=== PATIENT | female | born 1955 | race Caucasian/White ===

== ENCOUNTER → 2017-03-23 | Outpatient (CLI) | payer MEDICAID ==
[2014-08-20 10:39] VITALS: BP 116/60
[2017-03-23 11:33] LABS: BASOPHILS % (AUTO) 0.3 % (0.2-1.0); EOSINOPHILS # (AUTO) 0.3 x10^3/uL (0.0-0.2); EOSINOPHILS % (AUTO) 4.9 % (0.9-2.9); HEMATOCRIT 39.2 % (36.0-47.0); LYMPHOCYTES # (AUTO) 1.4 X10^3/uL (1.3-2.9); LYMPHOCYTES % (AUTO) 24.9 % (21.0-51.0); MEAN CORPUSCULAR HEMOGLOBIN 30.5 pg (27.0-34.0); MEAN CORPUSCULAR HGB CONC 33.1 g/dL (33.0-35.0); MEAN CORPUSCULAR VOLUME 92.2 fL (80.0-100.0); MEAN PLATELET VOLUME 8.9 fL (7.4-11.0); MONOCYTES # (AUTO) 0.3 x10^3/uL (0.3-0.8); MONOCYTES % (AUTO) 5.8 % (0.0-13.0); NEUTROPHILS # (AUTO) 3.5 x10^3/uL (2.2-4.8); NEUTROPHILS % (AUTO) 64.1 % (42.0-75.0); PLATELET COUNT 148 X10^3/uL (150.0-450.0); RED BLOOD COUNT 4.25 X10^6/uL (3.5-5.4); RED CELL DISTRIBUTION WIDTH 14.7 % (11.6-16.5); WHITE BLOOD COUNT 5.4 X10^3/uL (3.6-10.0)
[2017-03-23 11:39] LABS: ALANINE AMINOTRANSFERASE 27 Units/L (12-78); ALBUMIN 3.3 g/dL (3.4-5.0); ALKALINE PHOSPHATASE 68 Units/L (46-116); ASPARTATE AMINO TRANSFERASE 21 Units/L (15-37); BLOOD UREA NITROGEN 13 mg/dL (7-18); CALCIUM 9.1 mg/dL (8.5-10.1); CARBON DIOXIDE 31.6 mmol/L (21-32); CHLORIDE 108 mmol/L (98-107); CHOL/HDL RATIO 1.7 (0.0-5.0); CHOLESTEROL 133 mg/dL (0-200); COR CA(FOR HYPOALB) 9.7 mg/dL (8.5-10.1); COR NA(FOR HYPERGLY) 147 mmol/L (136-145); CREATININE 1.13 mg/dL (0.55-1.02); GLUCOSE 125 mg/dL (65-99); HDL CHOLESTEROL 77 mg/dL (40-60); SODIUM 146 mmol/L (136-145); T4 (THYROXINE) 8.5 ug/dL (4.7-13.3); TOTAL PROTEIN 6.9 g/dL (6.4-8.2); TRIGLYCERIDES 71 mg/dL (0-150); TSH (3RD GENERATION) 2.099 uIU/mL (0.358-3.74); URIC ACID 3.9 mg/dL (2.6-6.0); eGFR BLACK RACES > 60 (>60); eGFR NON BLACK RACES 52 (>60)
[2017-03-23 12:02] LABS: ERYTHROCYTE SEDIMENTATION RATE 13 MM/HOUR (0-20)
[2017-03-23 12:07] LABS: TRANSFERRIN 194 mg/dL (202-364)
--- NOTE | 2017-03-23 12:47 | RAD ---
HISTORY: Right shoulder pain Study: 3 views of the right shoulder. Comparison: None Findings: No acute fractures or dislocations. The glenohumeral articulation is normal in its appearance. No g ross soft tissue abnormalities. The acromioclavicular joint is normal in appearance. IMPRESSION: 1. No acute abnormality of the right shoulder. Reported By:
[2017-03-28 05:35] LABS: METHYLMALONIC ACID 0.19 umol/L (0.00-0.40)
== END ==
LOC: LAB 10:14
PROVIDERS: ATTEND Nurse Practitioner Family
DX: E03.8 Other specified hypothyroidism (principal); M10.9 Gout, unspecified; E78.4 Other hyperlipidemia; D64.89 Other specified anemias; Z91.89 Other specified personal risk factors, not elsewhere classified; M25.511 Pain in right shoulder
CPT/HCPCS: 36415; 73030; 80053; 80061; 82306; 82607; 82728; 82746; 83918; 84436; 84443; 84466; 84480; 84550; 85025; 85652; 86140

== ENCOUNTER → 2017-05-24 | Outpatient (CLI) | payer MEDICAID ==
[2014-08-20 10:39] VITALS: BP 116/60
--- NOTE | 2017-05-24 15:44 | MRI ---
Right shoulder MRI without contrast Indication: Right shoulder pain related to pulling injury Technique: Multi sequence, multiplanar MR images of the right shoulder were obtained without contras t. Comparison: Shoulder radiograph March 25, 2017 Findings: Apart from subcortical cysts along the anterior humeral head, marrow signal appears normal . No acute fracture, malalignment or suspicious osseous lesion is identified. There is a complete tear of the supraspinatus tendon at the footplate, which is centrally retraction to the level of the AC joint. There is marked infraspinatus tendinosis, which demonstrates an inter mediate grade, mixed articular and bursal sided tear of its anterior-mid fibers at the footplate wit h a delaminating component extending to the myotendinous junction. There are also partial thickness tears of the cranial subscapularis tendon near its insertion. The teres minor appears intact. There is mild fatty atrophy of the supraspinatus and infraspinatus muscles. There is moderate DJD of the AC joint with associated capsular hypertrophy, marginal osteophyte form ation and small effusion. There is also mild DJD of the glenohumeral joint with small marginal osteo phyte formation along the inferomedial humeral head. The humeral head is high-riding within the rhona oid with narrowing of the acromiohumeral interval and large fluid within the subdeltoid/subacromial bursa, secondary to full-thickness cuff tears. There is also a small-moderate glenohumeral joint eff usion. The intraarticular long head biceps tendon is not visualized. There is a longitudinal tear of the ex tra-articular biceps tendon, which remains appropriately positioned within the bicipital groove. The re is moderate degenerative fraying of the labrum without discrete focal defect identified. Impression: 1. Complete tear of the supraspinatus tendon at the footplate with central retraction to the level o f the AC joint and mild associated atrophy. 2. Mixed, intermediate grade tears of the anterior-mid infraspinatus tendon at the footplate with de laminating component extending to the myotendinous junction. There is mild associated atrophy. 3. Partial thickness tears of the cranial subscapularis tendon. 4. Moderate AC and mild glenohumeral joint DJD with moderate sized, likely reactive joint effusion. 5. Tears of the long head biceps tendon, as detailed above Reported By:
== END | disposition home or self-care (01) ==
LOC: RAD 13:01
PROVIDERS: ATTEND Nurse Practitioner Family
DX: M25.512 Pain in left shoulder (principal); S46.812A Strain of other muscles, fascia and tendons at shoulder and upper arm level, left arm, initial encounter; X58.XXXA Exposure to other specified factors, initial encounter
CPT/HCPCS: 73221

== ENCOUNTER → 2017-07-05 | Outpatient (CLI) | payer MEDICAID ==
[2014-08-20 10:39] VITALS: BP 116/60
--- NOTE | 2017-07-05 14:42 | RAD ---
HISTORY: Personal history of neoplasm. History of breast cancer. Study: Two-view chest. Comparison: July 20, 2016. Findings: The trachea is midline. The cardiac silhouette is within normal limits. The lungs are clear without focal infiltrate or effusion. No pulmonary nodules or mass lesions are identified. Laparoscopically placed gastric band is incidentally noted. Cholecystectomy clips project over the right upper quadran t of the abdomen. The bony thorax is unremarkable. IMPRESSION: No acute cardiopulmonary disease or concerning change compared with July 20, 2016. Reported By:
--- NOTE | 2017-07-06 11:00 | MG ---
HISTORY: SCREENING Comparison: June 13, 2016 FINDINGS: Bilateral CC and MLO projections of the right and left breast were obtained. Scattered fibroglandula r tissue is seen to be present. Postoperative changes consistent with prior lumpectomy is observed wi thout underlying mass or clustered microcalcifications. Otherwise, no significant architectural disto rtion, mass or clustered microcalcifications can be observed to suggest malignancy. No skin thickeni ng or nipple retraction is appreciated. No pathological lymphadenopathy can be identified. Benign-a ppearing calcifications scattered throughout the right and left breasts are observed. IMPRESSION: NO RADIOGRAPHIC EVIDENCE OF MALIGNANCY. ACR CATEGORY: 2 - benign findings. FOLLOW-UP EXAM 1 YEAR. Diagnostic CAD was utilized and reviewed. * 0 (ZERO) - ASSESSMENT INCOMPLETE; ADDITIONAL IMAGING IS NEEDED. * 1/1 (ONE) - NEGATIVE. * 2/II (TWO) - BENIGN FINDINGS. * 3/III (THREE) - PROBABLY BENIGN FINDING; SHORT INTERVAL FOLLOW-UP SUGGESTED. * 4/IV (FOUR) - SUSPICIOUS ABNORMALITY; BIOPSY SHOULD BE CONSIDERED. * 5/V - HIGHLY SUSPICIOUS OF MALIGNANCY; BIOPSY SHOULD BE PERFORMED. A NEGATIVE X-RAY REPORT SHOULD NOT DELAY BIOPSY IF A DOMINANT OR CLINICALLY SUSPICIOUS MASS IS PRESENT; 4 TO 8 PERCENT OF CANCERS ARE NOT IDENTIFIED BY X-RAY. A NEGA TIVE REPORT MAY REINFORCE THE CLINICAL IMPRESSION. ADENOSIS AND DENSE BREASTS MAY OBSCURE AN UNDERLY ING NEOPLASM. Reported By:
== END ==
LOC: RAD 10:11
PROVIDERS: ATTEND Surgery
DX: Z12.31 Encounter for screening mammogram for malignant neoplasm of breast (principal); Z85.3 Personal history of malignant neoplasm of breast
CPT/HCPCS: 71020; 77067

== ENCOUNTER 2017-07-07 09:20 | Emergency (ER) | payer MEDICAID ==
[2017-07-07 09:35] VITALS: BP 133/92; BMI 38.7
--- NOTE | 2017-07-07 10:18 | DR.GENAD ---
HPI - PCP Primary Care Physician: MARLENE MARES - Complaint/Symptoms Chief Complaint Doctors Comments: Patient admits to having cramps for the past three months Chief Complaint:: CRAMPING, ALL OVER MY BODY, Self Treatment fo Chief Complaint: CHANGED AND DELETED SOME MEDS LAST NIGHT - Source History Provided: Patient - Mode of Arrival Mode of Arrival: Ambulatory - Timing Onset of Chief Complaint: 06/20/17 PMH - PMH Past Medical History: Yes Past Medical History: Anxiety, GERD, Hypothyroidism Past Medical History Comment: BREAST CA Past Surgical History: Yes Surgical History: Appendectomy, Cholecystectomy, Hysterectomy - Family History History of Family Medical Conditions: Yes Family Medical History: Diabetes Mellitus, Cancer, Hypertension - Social History Alcohol Use: None Do you use any recreational Drugs:: No Lives With: Family Lives Where: Home - infectious screening In the last 2 months have you had wt loss of >10#?: NO Have you had fever, night sweats or hemotysis?: No Have you traveled outside the country in the last 6 months?: No Isolation: Standard ROS - Review of Systems Eyes: No Symptoms Reported ENTM: No Symptoms Reported Respiratoy: No Symptoms Reported Cardiovascular: No Symptoms Reported Gastrointestinal/Abdominal: No Symptoms Reported Genitourinary: No Symptoms Reported Neurological: No Symptoms Reported Musculoskeletal: No Symptoms Reported Integumentary: No Symptoms Reported Hematologic/Lymphatic: No Symptoms Reported Endocrine: No Symptoms Reported Psychiatric: No Symptoms Reported All Other Systems: Reviewed and Negative PE - Vital Signs Vitals: Temperature 98.1 F Pulse Rate 82 Respiratory Rate 18 Blood Pressure [Left Arm] 112/68 Blood Pressure 133/92 O2 Sat by Pulse Oximetry 95 - General Limitations: No Limitations General Appearance: Alert, In No Apparent Distress - Head Head Exam: Normal Inspection, Atraumatic - Eyes Eye exam: Normal Appearance, PERRL, EOMI - ENT ENT Exam: Normal Exam External Ear Exam: Normal External Inspection TM/Canal Exam: Bilateral Normal Nose Exam: Normal Nose Exam Mouth Exam: Normal Inspection Throat Exam: Normal Inspection - Neck Neck Exam: Normal Inspection - Chest Chest Inspection: Normal Inspection - Respiratory Respiratory Exam: Normal Lung Sounds Bilat Respiratory Exam: Bilateral Clear to Auscultation - Cardiovascular Cardiovascular Exam: Regular Rate, Normal Rhythm - Abdominal Exam Abdominal Exam: Normal Inspection Abdominal Tenderness: negative: RUQ, RLQ, LUQ, LLQ, Epigastrium, Suprapubic, Diffuse, Mild, Moderate, Severe, Other - Extremities Extremities Exam: Normal Inspection, Full ROM - Back Back Exam: Normal Inspection - Neurologic Neurological Exam: Alert, CN II-XII Intact - Psychiatric Psychiatric Exam: Normal Affect - Skin Skin Exam: Warm, Dry, Intact - Diagnosis Discharge Problem: Hyperthyroidism - Discharge Plan Condition: Stable - Follow ups/Referrals Follow ups/Referrals: RODRIGUEZ MARES [Primary Care Provider] - 3 days - Instructions
[2017-07-07] MEDS ORDERED: NUBAIN INJ 10 IM ONE (10:31)
[2017-07-07] MEDS ORDERED: NUBAIN INJ 10 ONE (10:32)
== END 2017-07-07 11:00 | disposition home or self-care (01) ==
LOC: ER 09:38
DX: E05.90 Thyrotoxicosis, unspecified without thyrotoxic crisis or storm (principal)
CPT/HCPCS: 96372; 99282; J2300

== ENCOUNTER → 2017-09-29 | Outpatient (CLI) | payer MEDICAID ==
[2017-09-29 10:25] LABS: CREATININE 1.24 mg/dL (0.55-1.02)
--- NOTE | 2017-09-29 16:20 | CT ---
HISTORY: Left upper quadrant pain, nausea and vomiting Study: CT abdomen and pelvis with contrast Comparison: 09/11/2014 Technique: Multiple axial images of the abdomen and pelvis were obtained with IV contrast. Oral contrast was ad ministered. Dose reduction techniques including Automated Exposure Control (AEC) and adjustment of mA and kV were utilized. Findings: The proximal gastric pouch has enlarged since prior exam, in keeping with an enlarging hiatal hernia. There is contrast seen pooling in the proximal pouch. There is a lap band in place with appropriate orientation. The liver, spleen, pancreas, kidneys, and adrenal glands are unremarkable. The gallblad lencho is removed. No renal calculi or obstructive uropathy identified. No free intraperitoneal air. No evidence of intestinal obstruction or inflammation. There are a few c olonic diverticula present without evidence of acute inflammation. The appendix is removed. There are degenerative changes of the lumbosacral spine. The vascular structures are within normal li mits for age. No pathologically enlarged lymph nodes are identified. The uterus is removed. The urina ry bladder is collapsed, limiting evaluation. IMPRESSION: 1. Enlarging hiatal hernia with greater protrusion of the proximal gastric pouch through the band. Th is can be a sign of dysfunction, correlate clinically. Lap band orientation appears appropriate. 2. Some oral contrast remains within the proximal gastric pouch but the majority of contrast flows no rmally through the band without evidence of high-grade obstruction. 3. Additional postsurgical changes as described. Reported By:
== END ==
LOC: RAD 09:26
PROVIDERS: ATTEND Nurse Practitioner Family
DX: R19.04 Left lower quadrant abdominal swelling, mass and lump (principal); K44.9 Diaphragmatic hernia without obstruction or gangrene
CPT/HCPCS: 36415; 74177; 82565; 84520; A4222

== ENCOUNTER 2017-10-19 09:41 | Day surgery (SDC) | payer MEDICAID ==
[2017-10-19] MEDS ORDERED: D5 LR 1000 ML 1,000 ML IV ONE (09:53)
[2017-10-19] MEDS ORDERED: VERSED ONE (10:56)
[2017-10-19] MEDS ORDERED: DIPRIVAN VIAL 20 ML ONE (11:58)
[2017-10-19 12:37] VITALS: BP 136/86
== END 2017-10-19 12:35 | disposition home or self-care (01) ==
LOC: SURG1 09:41
PROVIDERS: ATTEND Internal Medicine Gastroenterology
PROC: 0DJ08ZZ Inspection of Upper Intestinal Tract, Via Natural or Artificial Opening Endoscopic (ICD-10-PCS; principal; 2017-10-19 14:30)
PROC: 0DB88ZX Excision of Small Intestine, Via Natural or Artificial Opening Endoscopic, Diagnostic (ICD-10-PCS; principal; 2017-10-19 14:30)
PROC: 0DB68ZX Excision of Stomach, Via Natural or Artificial Opening Endoscopic, Diagnostic (ICD-10-PCS; principal; 2017-10-19 14:30)
DX: R11.0 Nausea (principal); R10.13 Epigastric pain; K21.9 Gastro-esophageal reflux disease without esophagitis; Z98.84 Bariatric surgery status; K20.8 Other esophagitis; K29.60 Other gastritis without bleeding; Z98.890 Other specified postprocedural states
CPT/HCPCS: A4217; J2250; J3490; J7120

== ENCOUNTER 2017-10-26 08:20 | Day surgery (SDC) | payer MEDICAID ==
[2017-10-26] MEDS ORDERED: D5 LR 1000 ML 1,000 ML IV ONE (08:28)
[2017-10-26] MEDS ORDERED: VERSED ONE (09:55)
[2017-10-26] MEDS ORDERED: DIPRIVAN VIAL 20 ML ONE ×2 (10:06→10:23)
[2017-10-26 10:40] VITALS: BP 112/67
== END 2017-10-26 10:40 | disposition home or self-care (01) ==
LOC: SURG1 08:20
PROVIDERS: ATTEND Internal Medicine Gastroenterology
PROC: 0DBP8ZX Excision of Rectum, Via Natural or Artificial Opening Endoscopic, Diagnostic (ICD-10-PCS; principal; 2017-10-26 10:00)
PROC: 0DJD8ZZ Inspection of Lower Intestinal Tract, Via Natural or Artificial Opening Endoscopic (ICD-10-PCS; principal; 2017-10-26 10:00)
DX: Z12.11 Encounter for screening for malignant neoplasm of colon (principal); K63.5 Polyp of colon; K64.0 First degree hemorrhoids; K57.30 Diverticulosis of large intestine without perforation or abscess without bleeding; Z86.010 Personal history of colon polyps
CPT/HCPCS: A4217; J2250; J3490; J7120

== ENCOUNTER 2017-11-20 17:20 | Emergency (ER) | payer MEDICAID ==
[2017-11-20 17:31] VITALS: BMI 37.8
--- NOTE | 2017-11-20 17:39 | DR.GENAD ---
HPI - PCP Primary Care Physician: GRACIA MARES - HPI Comment HPI Comment: Pt states she fell onto her lefgt hip about 10 days ago. Went to PCPs office today, was noted to be somnolent with dropping sats when she fell asleep. Sent here with concern for PE. Pt AAOx3, alert and conversant on arrival. - Complaint/Symptoms Chief Complaint:: PT TO ER PER [facility] [employer] REQUEST AND SHE STATES PT FELL A WEEK AGO AND THAT SHE IS HAVING KNEE PAIN AND SOME SOB, AND HER SATS WERE DROPPING IN THE 80'S AND THAT SHE WAS VERY SEDATED AND THAT SHE THINKS SHE MAY HAVE A PE, OR DVT. - Source History Provided: Patient, Other - Mode of Arrival Mode of Arrival: EMS - Timing Onset of Chief Complaint: 11/20/17 <DURAN MUNOZ - Last Filed: 11/20/17 17:49> PMH - PMH Past Medical History: Yes Past Medical History: Anxiety, GERD, Hypothyroidism Past Medical History Comment: no hx cardiac dz per pt Past Surgical History: Yes Surgical History: Appendectomy, Cholecystectomy, Hysterectomy Past Surgical History Comment: both knees rep[laced, rt in 1996, left in 2010. - Family History History of Family Medical Conditions: Yes Family Medical History: Diabetes Mellitus, Cancer, Hypertension - Social History Does patient currently use any type of tobacco product: No Have you used tobacco products in the last 12 months: No Type of Tobacco Use: None Does any household member use tobacco: No Alcohol Use: None Do you use any recreational Drugs:: No Lives With: Family Lives Where: Home - infectious screening In the last 2 months have you had wt loss of >10#?: NO Have you had fever, night sweats or hemotysis?: No Have you traveled outside the country in the last 6 months?: No Isolation: Standard <DURAN MUNOZ - Last Filed: 11/20/17 17:49> ROS - Review of Systems Constitutional: No Symptoms Reported Eyes: No Symptoms Reported ENTM: No Symptoms Reported Respiratoy: No Symptoms Reported Cardiovascular: No Symptoms Reported Gastrointestinal/Abdominal: No Symptoms Reported Genitourinary: No Symptoms Reported Neurological: No Symptoms Reported Musculoskeletal: Joint Pain, Hip (left hip pain, hurts chronically but worse since fall 10 days ago, pt states left knee always hurts) <DURAN MUNOZ - Last Filed: 11/20/17 17:49> PE - General Limitations: No Limitations. negative: Altered Mental Status General Appearance: Alert, In No Apparent Distress, Obese. negative: Appears Intoxicated, Lethargic - Head Head Exam: Normal Inspection, Normocephalic - Eyes Eye exam: Normal Appearance, PERRL, Conjunctival Injection - ENT ENT Exam: Normal Exam Nose Exam: Normal Nose Exam Mouth Exam: Normal Inspection Throat Exam: Normal Inspection. negative: Tonsillar Erythema, Tonsillomegaly - Neck Neck Exam: Normal Inspection, Full ROM, Trachea Midline. negative: Tenderness, Meningismus, Lymphadenopathy - Chest Chest Inspection: Normal Inspection, Symmetric Chest Wall Rise - Respiratory Respiratory Exam: Normal Lung Sounds Bilat. negative: Accessory Muscle Use, Chest Wall Tenderness, Prolonged Expiratory Phase, Respiratory Distress, Stridor Respiratory Exam: Bilateral Clear to Auscultation - Cardiovascular Cardiovascular Exam: Regular Rate, Normal Rhythm. negative: Systolic Murmur, Diastolic Murmur - Abdominal Exam Abdominal Exam: Normal Inspection, Normal Bowel Sounds, Soft - Extremities Extremities Exam: Normal Inspection, Full ROM, Normal Capillary Refill, Other ( Kermit's neg bilat). negative: Tenderness, Edema, Joint Swelling, Calf Tenderness - Neurologic Neurological Exam: Alert, Oriented X3, Reflexes Normal - Psychiatric Psychiatric Exam: Normal Affect, Normal Mood - Skin Skin Exam: Warm, Dry, Intact <DURAN MUNOZ - Last Filed: 11/20/17 17:49> - Vital Signs Vitals: Temperature 96.9 F Pulse Rate [Left Brachial] 98 Pulse Rate 75 Respiratory Rate 22 Blood Pressure [Left Arm] 104/71 Blood Pressure 132/86 O2 Sat by Pulse Oximetry 95 Course - Treatment Treatment: Alert in no respiratory distress, 95% on RA - Reevaluation 1st: Improved <RADHA CALHOUN - Last Filed: 11/20/17 23:44> ROR - Labs Reviewed Laboratory Results Reviewed?: Yes (D Dimer Elevated, Potassium elevated) Result Diagrams: 11/20/17 17:50 11/20/17 23:00 - XRAY XRAY Interpreted by: Radiologist (Venous Doppler negative for DVT), Self (Chest : cardiomegaly without definite pulmonary disease. i,e pneumonia) <RADHA CALHOUN - Last Filed: 11/20/17 23:44> - Labs Reviewed Laboratory: WBC 8.8 X10^3/uL (3.6-10.0) 11/20/17 17:50 RBC 4.03 X10^6/uL (3.5-5.4) 11/20/17 17:50 Hgb 12.7 g/dL (12.0-16.0) 11/20/17 17:50 Hct 37.8 % (36.0-47.0) 11/20/17 17:50 MCV 93.8 fL (80.0-100.0) 11/20/17 17:50 MCH 31.6 pg (27.0-34.0) 11/20/17 17:50 MCHC 33.7 g/dL (33.0-35.0) 11/20/17 17:50 RDW 13.9 % (11.6-16.5) 11/20/17 17:50 Plt Count 184 X10^3/uL (150.0-450.0) 11/20/17 17:50 MPV 7.8 fL (7.4-11.0) 11/20/17 17:50 Neut % 71.9 % (42.0-75.0) 11/20/17 17:50 Lymph % 18.0 % (21.0-51.0) L 11/20/17 17:50 [place] % 6.7 % (0.0-13.0) 11/20/17 17:50 Eos % 2.8 % (0.9-2.9) 11/20/17 17:50 Baso % 0.6 % (0.2-1.0) 11/20/17 17:50 Neut # 6.4 x10^3/uL (2.2-4.8) H 11/20/17 17:50 Lymph # 1.6 X10^3/uL (1.3-2.9) 11/20/17 17:50 [place] # 0.6 x10^3/uL (0.3-0.8) 11/20/17 17:50 Eos # 0.2 x10^3/uL (0.0-0.2) 11/20/17 17:50 Baso # 0.1 X10^3/uL (0.0-0.1) 11/20/17 17:50 Absolute Nucleated RBC 0.1 /100WBC 11/20/17 17:50 D-Dimer 958 ng/mL (0-400) H* 11/20/17 17:50 Sodium 138 mmol/L (136-145) 11/20/17 23:00 Corrected Sodium 139 mmol/L (136-145) 11/20/17 23:00 Potassium 4.4 mmol/L (3.5-5.1) 11/20/17 23:00 Chloride 104 mmol/L (98-107) 11/20/17 23:00 Carbon Dioxide 28.2 mmol/L (21-32) 11/20/17 23:00 BUN 15 mg/dL (7-18) 11/20/17 23:00 Creatinine 1.33 mg/dL (0.55-1.02) H 11/20/17 23:00 Est GFR (MDRD) Af Amer 52 (>60) L 11/20/17 23:00 Est GFR (MDRD) Non-Af 43 (>60) L 11/20/17 23:00 Glucose 122 mg/dL (65-99) H 11/20/17 23:00 Calcium 8.4 mg/dL (8.5-10.1) L 11/20/17 23:00 Corrected Calcium 9.8 mg/dL (8.5-10.1) 11/20/17 17:50 Total Bilirubin 0.20 mg/dL (0.2-1.0) 11/20/17 17:50 AST 13 Units/L (15-37) L 11/20/17 17:50 ALT 16 Units/L (12-78) 11/20/17 17:50 Alkaline Phosphatase 84 Units/L (46-116) 11/20/17 17:50 Creatine Kinase 32 Units/L (26-192) 11/20/17 17:50 CK-MB (CK-2) < 1.0 ng/mL (0-4.0) 11/20/17 17:50 CK/CKMB % Calc 3.1 % (<4) 11/20/17 17:50 Troponin I < 0.02 ng/mL (0-1.5) 11/20/17 17:50 B-Natriuretic Peptide 11.7 pg/mL (0-79) 11/20/17 17:50 Total Protein 6.9 g/dL (6.4-8.2) 11/20/17 17:50 Albumin 3.2 g/dL (3.4-5.0) L 11/20/17 17:50 Globulin 3.7 g/dL (2.5-4.5) 11/20/17 17:50 Albumin/Globulin Ratio 0.9 Ratio (1.1-2.1) L 11/20/17 17:50 Specimen Type Clean catch urine 11/20/17 20:09 Urine Color Yellow (YELLOW) 11/20/17 20:09 Urine Appearance Hazy (CLEAR) 11/20/17 20:09 Urine pH 5.0 (5.0 - 8.0) 11/20/17 20:09 Ur Specific [place] 1.025 (1.000-1.030) 11/20/17 20:09 Urine Protein 2+ (NEGATIVE) 11/20/17 20:09 Urine Glucose (UA) Negative (NEGATIVE) 11/20/17 20:09 Urine Ketones Negative (NEGATIVE) 11/20/17 20:09 Urine Occult Blood 2+ (NEGATIVE) 11/20/17 20:09 Urine Nitrite Negative (NEGATIVE) 11/20/17 20:09 Urine Bilirubin Negative (NEGATIVE) 11/20/17 20:09 Urine Urobilinogen Normal (NORMAL) 11/20/17 20:09 Ur Leukocyte Esterase Negative (NEGATIVE) 11/20/17 20:09 Urine RBC 0-5 /HPF (NEGATIVE) 11/20/17 20:09 Urine WBC 0-2 /HPF (NEGATIVE) 11/20/17 20:09 Ur Squamous Epith Cells Negative /HPF (NEGATIVE) 11/20/17 20:09 Urine Bacteria Trace /HPF (NEGATIVE) 11/20/17 20:09 Ur Culture Indicated? No/not indicated 11/20/17 20:09 <DURAN MUNOZ - Last Filed: 11/20/17 17:49> <RADHA CALHOUN - Last Filed: 11/20/17 23:44> - Diagnosis Discharge Problem: Negative DVT, Hyperkalemia Knee pain, left Qualifiers: Chronicity: unspecified Qualified Code(s): M25.562 - Pain in left knee - Discharge Plan Condition: Stable - Follow ups/Referrals Follow ups/Referrals: Gracia Mares [Primary Care Provider] - 3 days - Instructions
[2017-11-20 17:58] LABS: BASOPHILS # (AUTO) 0.1 X10^3/uL (0.0-0.1); BASOPHILS % (AUTO) 0.6 % (0.2-1.0); EOSINOPHILS # (AUTO) 0.2 x10^3/uL (0.0-0.2); EOSINOPHILS % (AUTO) 2.8 % (0.9-2.9); HEMATOCRIT 37.8 % (36.0-47.0); HEMOGLOBIN 12.7 g/dL (12.0-16.0); LYMPHOCYTES # (AUTO) 1.6 X10^3/uL (1.3-2.9); MEAN CORPUSCULAR HEMOGLOBIN 31.6 pg (27.0-34.0); MEAN CORPUSCULAR HGB CONC 33.7 g/dL (33.0-35.0); MEAN CORPUSCULAR VOLUME 93.8 fL (80.0-100.0); MEAN PLATELET VOLUME 7.8 fL (7.4-11.0); MONOCYTES # (AUTO) 0.6 x10^3/uL (0.3-0.8); MONOCYTES % (AUTO) 6.7 % (0.0-13.0); NEUTROPHILS # (AUTO) 6.4 x10^3/uL (2.2-4.8); NEUTROPHILS % (AUTO) 71.9 % (42.0-75.0); PLATELET COUNT 184 X10^3/uL (150.0-450.0); RED BLOOD COUNT 4.03 X10^6/uL (3.5-5.4); RED CELL DISTRIBUTION WIDTH 13.9 % (11.6-16.5); WHITE BLOOD COUNT 8.8 X10^3/uL (3.6-10.0)
[2017-11-20 18:15] LABS: BLOOD UREA NITROGEN 17 mg/dL (7-18); CALCIUM 9.2 mg/dL (8.5-10.1); CARBON DIOXIDE 33.4 mmol/L (21-32); CHLORIDE 103 mmol/L (98-107); COR NA(FOR HYPERGLY) 140 mmol/L (136-145); CREATININE 1.66 mg/dL (0.55-1.02); SODIUM 139 mmol/L (136-145); TROPONIN I < 0.02 ng/mL (0-1.5); eGFR BLACK RACES 40 (>60); eGFR NON BLACK RACES 33 (>60)
[2017-11-20 18:19] LABS: ALANINE AMINOTRANSFERASE 16 Units/L (12-78); ALBUMIN 3.2 g/dL (3.4-5.0); ALKALINE PHOSPHATASE 84 Units/L (46-116); ASPARTATE AMINO TRANSFERASE 13 Units/L (15-37); CKMB % 3.1 % (<4); COR CA(FOR HYPOALB) 9.8 mg/dL (8.5-10.1); CREATINE KINASE 32 Units/L (26-192); CREATINE KINASE MB < 1.0 ng/mL (0-4.0); TOTAL PROTEIN 6.9 g/dL (6.4-8.2)
[2017-11-20 18:27] LABS: B-TYPE NATRIURETIC PEPTIDE 11.7 pg/mL (0-79)
[2017-11-20] MEDS ORDERED: NS 1000 ML 1,000 ML ONE ×2 (18:52→19:31)
[2017-11-20] MEDS ORDERED: NS 1000 ML 1,000 ML IV ONE (18:52)
[2017-11-20 20:18] LABS: BILIRUBIN,URINE NEGATIVE (NEGATIVE); BLOOD/HEMOGLOBIN,URINE 2+ (NEGATIVE); GLUCOSE, URINE NEGATIVE (NEGATIVE); KETONES,URINE NEGATIVE (NEGATIVE); LEUKOCYTE ESTERASE ,URINE NEGATIVE (NEGATIVE); NITRITES,URINE NEGATIVE (NEGATIVE); PROTEIN,URINE 2+ (NEGATIVE); UROBILINOGEN,URINE NORMAL (NORMAL)
[2017-11-20 20:21] LABS: APPEARANCE,URINE HAZY (CLEAR); BACTERIA,URINE TRACE /HPF (NEGATIVE); COLOR,URINE YELLOW (YELLOW); RBC,URINE 0-5 /HPF (NEGATIVE); SQUAMOUS EPITHELIAL CELL,UR NEGATIVE /HPF (NEGATIVE)
[2017-11-20 21:22] LABS: CALCIUM 8.5 mg/dL (8.5-10.1); CARBON DIOXIDE 27.2 mmol/L (21-32); CREATININE 1.46 mg/dL (0.55-1.02)
[2017-11-20] MEDS ORDERED: PROVENTIL NEB TX 0.083% 2.5MG/ 3ML NEB ONE (21:25)
[2017-11-20] MEDS ORDERED: PROVENTIL NEB TX 0.083% 2.5MG/ 3ML ONE (21:36)
[2017-11-20] MEDS ORDERED: TORADOL 30 MG VIAL IVP ONE (22:22)
[2017-11-20] MEDS ORDERED: TORADOL 30 MG VIAL ONE (22:23)
--- NOTE | 2017-11-20 22:44 | VAS ---
HISTORY: Shortness of breath, elevated D-dimer Study: Left lower extremity venous Doppler Comparison: None TECHNIQUE: Multiple ferreira scale and color flow Doppler images of the deep venous system were obtained of the left lower extremity. FINDINGS: The deep venous system of the left lower extremity was evaluated from the level of the common femoral vein through the popliteal vein. Normal color flow and augmentation can be observed. In addition, normal compression is seen throughout the deep venous system. IMPRESSION: Negative for DVT. Reported By:
[2017-11-20 23:10] VITALS: BP 104/71
[2017-11-20 23:17] LABS: CALCIUM 8.4 mg/dL (8.5-10.1); CARBON DIOXIDE 28.2 mmol/L (21-32); CREATININE 1.33 mg/dL (0.55-1.02)
--- NOTE | 2017-11-21 04:08 | RAD ---
Chest, one view Indication: Fall with shortness of breath Comparison: 07/05/2017 Findings: Heart size is normal. No focal consolidation, effusion or pneumothorax is identified. There is no acute osseous abnormality. Impression: No acute cardiopulmonary abnormality. Reported By:
== END 2017-11-20 23:48 | disposition home or self-care (01) ==
LOC: ER 17:31
DX: M25.562 Pain in left knee (principal); R40.0 Somnolence; R09.02 Hypoxemia
CPT/HCPCS: 36415; 71045; 80048; 80053; 81001; 82550; 82553; 83880; 84484; 85025; 85378; 93971; 94640; 96365; 96367; 96374; 99283; A4222; J1885; J7613

== ENCOUNTER → 2017-11-24 | Outpatient (CLI) | payer MEDICAID ==
[2017-11-20 23:10] VITALS: BP 104/71
[~2017-11-24] MED LIST: NS 100 ML IV 100 ML IV ONE
--- NOTE | 2017-11-24 18:23 | CT ---
HISTORY: Shortness of breath, cough, weakness Study: CT chest without contrast Comparison: None Technique: Multiple axial images of the chest were obtained from the thoracic inlet to the upper abdo men without the administration of IV contrast. Dose reduction techniques including automated exposure control (AEC) and adjustment of mA and kV were utilized. Findings: Scattered subcentimeter lymph nodes are seen within the mediastinum. Evaluation of the mediastinum, h ilar regions, and vascular structures is limited without IV contrast. A pericardial effusion is demo nstrated measuring up to approximately 1.0 cm in thickness anteriorly. Atherosclerotic changes are s een within the visualized aorta. An ill-defined nodular opacity measuring approximately 9 mm across i ts greatest dimension is seen within the superior segment of the right lower lobe on image 27 of seri es 4 and image 57 of series 6. Subsegmental atelectasis and/or scarring are noted within both lower l obes. Otherwise no CT evidence of focal consolidation, pneumothorax, or pleural effusion is identifie d. Postoperative changes of lap band surgery are noted. Surgical clips are seen within the gallbladde r fossa. A moderate-sized hiatal hernia is demonstrated. IMPRESSION: Right lower lobe pulmonary nodule as discussed above. Recommend follow-up exam in 3-6 months for furt her evaluation. Moderate-sized hiatal hernia. Reported By:
== END | disposition home or self-care (01) | DRG 948 ==
LOC: RAD 10:48
PROVIDERS: ATTEND Psychiatry & Neurology Neurology
DX: R79.89 Other specified abnormal findings of blood chemistry (principal); K44.9 Diaphragmatic hernia without obstruction or gangrene; R91.1 Solitary pulmonary nodule
CPT/HCPCS: 71250; A4222